=== PATIENT | female | born 2000 | race Caucasian/White ===

== ENCOUNTER 2018-02-21 20:32 | Inpatient (IN) | payer OTHER ==
[2018-02-21] MEDS ORDERED: OXYTOCIN 30 UNITS IN 0.9% NaCl 500ML IV BAG (J2590) As Ordered (20:40)
[2018-02-21] MEDS: LR 1,000 ML IV ×2 (21:08)
[2018-02-21] MEDS ORDERED: DIBUCAINE 1% OINTMENT 30GM TOP ×2 (21:15)
[2018-02-21] MEDS ORDERED: PROMETHAZINE 25 MG TAB PO ×2 (21:15)
[2018-02-21] MEDS ORDERED: ONDANSETRON 4MG/2ML VIAL (J2405) IV ×2 (21:15)
[2018-02-21 22:28] LABS: HEMATOCRIT 33.9 % (36.0-47.0); HEMOGLOBIN 11.2 g/dl (12.0-15.5); MEAN CORPUSCULAR HEMOGLOBIN 27.9 pg (27.0-33.0); MEAN CORPUSCULAR VOLUME 84.5 fl (80.0-96.0); PLATELET COUNT, AUTOMATED 195 10^3/uL (150-450); RED BLOOD COUNT 4.01 10^6/uL (4.00-5.40); WHITE BLOOD COUNT 10.6 10^3/uL (4.0-10.0)
[2018-02-21 23:41] LABS: HBSAG L&D NEGATIVE (NEGATIVE)
[2018-02-22] MEDS: LR 1,000 ML IV ×2 (05:22)
[2018-02-22] MEDS: PRENATAL VITAMINS CHEWABLE TABLET PO ×2 (08:45)
[2018-02-22] MEDS: DOCUSATE SODIUM 100 MG CAP PO ×4 (08:45→20:14)
[2018-02-23] MEDS: ACETAMINOPHEN 500 MG TAB PO ×4 (00:14→08:09)
[2018-02-23] MEDS: DOCUSATE SODIUM 100 MG CAP PO ×2 (08:09)
[2018-02-23] MEDS: PRENATAL VITAMINS CHEWABLE TABLET PO ×2 (08:09)
== END 2018-02-23 11:10 | disposition home or self-care (01) | DRG 560 ==
LOC: M LDO 20:32 → M LDI 20:38 → M OBS 23:10
PROVIDERS: Obstetrics & Gynecology
PROC: 10E0XZZ Delivery of Products of Conception, External Approach (ICD-10-PCS; principal; 2018-02-21)
DX: O80 Encounter for full-term uncomplicated delivery (principal); Z88.6 Allergy status to analgesic agent; Z37.0 Single live birth; Z3A.39 39 weeks gestation of pregnancy

== ENCOUNTER 2020-06-13 23:34 | Inpatient (IN) | payer OTHER ==
[~2020-06-13] VITALS: Ht 162.6 cm; Wt 147.0 kg
[~2020-06-13 23:34] MED LIST: DIBU1OIN TOP; MAPA500T2 PO; PRENTAB9 PO
[2020-06-13] MEDS ORDERED: OXYTOCIN 30 UNITS IN 0.9% NaCl 500ML IV BAG (J2590) As Ordered ONE (23:37)
[2020-06-13 23:53] VITALS: BP 130/64
[2020-06-14] VITALS (8 sets, daily range): BP systolic 118–151; BP diastolic 60–85
[2020-06-14 00:21] LABS: HEMATOCRIT 34.1 % (36.0-47.0); HEMOGLOBIN 10.9 g/dl (12.0-15.5); MEAN CORPUSCULAR HEMOGLOBIN 27.7 pg (27.0-33.0); MEAN CORPUSCULAR VOLUME 86.8 fl (80.0-96.0); PLATELET COUNT, AUTOMATED 256 10^3/uL (150-450); RED BLOOD COUNT 3.93 10^6/uL (4.00-5.40); WHITE BLOOD COUNT 10.7 10^3/uL (4.0-10.0)
--- NOTE | 2020-06-14 00:23 | HPEPDOC ---
Obstetrical History & Physical General Date of Admission Jun 13, 2020 at 23:47 History of Present Illness 20-year-old G3, P2002 at 39+ weeks gestation. EDC 06/18/2020 Presents with frequent, painful uterine contractions over the past several hours. Denies any loss of fluid or vaginal bleeding. Reports regular movement. ROS: no MCDOWELL, cp, sob, fever/chills/nausea/vomiting. course: Uncomplicated PMH: None SH:. None Meds: vitamin All: Ibuprofen CRAB FISHER: No STI or dysplasia OB:, Term 2 Sochx: No tobacco, alcohol or drug use FamHx:. None reported labs: Blood type O+, antibody screen negative, HepBsAg neg, HIV neg, rubella immune, Hep C antibody negative, RPR nonreactive, CT/GC neg, urine culture negative, GDM screening within normal limits imaging: no anomalies or placental abnormalities Past Medical History Allergies Coded Allergies: ibuprofen (Verified Allergy, Mild, RASH, 06/13/20) Medications Scheduled No.137/Iron/Folic Acd ( Vitamin Tablet) 1 Tab Tab, 1 TAB PO DAILY Scheduled PRN Acetaminophen (Mapap) 500 Mg Tab, 1,000 MG PO Q6HP PRN for MILD PAIN (PS 1-4) Dibucaine (Dibucaine) 1 % Oin, 0 TOP Q4HP PRN for PAIN Physical Examination Physical Examination GENERAL: Alert and oriented times three. BREAST: . ABDOMEN: Gravid and non-tender to touch. FETUS: Is vertex (VTX) by sterile vaginal examination (SVE), fetus is vertex (VTX) by Gary. HEART RATE: Regular rate and rhythm. LUNGS: Clear to auscultation (CTA). EXTREMITIES: No edema. No clonus.\ SVE: 10/100/0, AROM,clear EFM: Cat I [place]: ctxs every 2-3 min Laboratory Data 24H LABS Laboratory Tests 2 06/13/20 23:44: CBC/BMP Assessment/Plan Assessment 20-year old at 39+ weeks gestation. Dx: Active labor/arrived in the second stage. Reassuring maternal and status. Plan Admit and orient. Routine labs/orders UMER VENTURA DO Jun 14, 2020 00:23
[2020-06-14] MEDS ORDERED: OXYTOCIN DRIP 30 UNITS in IV 1 EA IV SCH (00:24)
[2020-06-14] MEDS ORDERED: ONDANSETRON 4MG/2ML VIAL IV PRN (00:30)
[2020-06-14] MEDS ORDERED: BENZOCAINE 20% HEMORRHOIDAL OINTMENT 28GM TUBE TOP PRN (00:30)
[2020-06-14] MEDS ORDERED: ACETAMINOPHEN 500 MG TAB PO PRN (00:30)
[2020-06-14] MEDS ORDERED: MEASLES,MUMPS,RUBELLA VACCINE INJ (MMR-II) (90707) SC SCH (00:30)
[2020-06-14] MEDS ORDERED: DOCUSATE SODIUM 100MG CAPSULE PO PRN (00:30)
[2020-06-14] MEDS ORDERED: RHOGAM 300 MCG (1500 IU) INJ (J2790) IM SCH (00:30)
--- NOTE | 2020-06-14 00:30 | DNPDOC ---
[facility] Delivery Note Delivery Note DATE OF DELIVERY: 06/13/2020 TIME OF DELIVERY: 2348 Spontaneous vaginal delivery. CORPORATE RECEPTIONIST: Dr. Armando So DO FACOG ANESTHESIA: None LACERATION: None ESTIMATED BLOOD LOSS: 200 mL. FINDINGS: 7 pound 7 ounce (3370g) female , Score, 7 and 8. Mother was GBS positive and was not treated in time. DELIVERY SUMMARY: The active phase and second stage of labor progressed in rapid/precipitous fashion. The head delivered in the MELINA position, and restituted LOT. No nuchal cord was noted. The anterior shoulder delivered with gentle downward guidance and the remainder of the body delivered with ease. The baby was placed on the patient's chest. Delayed cord clamping occurred for approximately 1 minute. The cord was then doubly clamped and cut. IV Pitocin was bolused to actively manage the third stage of labor. The placenta delivered intact without any difficulty within 10 minutes of delivery. The uterine fundus was noted to be firm and 2 cm below the umbilicus. The cervix, vagina, vulva and perineum were inspected. No lacerations/hematoma. Excellent hemostasis was noted. Sponge, needle and instrument counts were correct per protocol. DO MALVIN Ceja JONATHAN R. DO Jun 14, 2020 00:30
--- NOTE | 2020-06-14 07:14 | IPNPDOC ---
Progress Note Date of Service: Jun 14, 2020 Day#: 1 Progress Note SUBJECT: Status post . She has been ambulating, voiding spontaneously without issue and tolerating regular diet. Lochia decreasing/minimal. Patient is ambulating well. OBJECTIVE: VITAL SIGNS: Within normal limits, afebrile. Alert and oriented times three. Abdomen: Fundus firm at U-2. Soft, NTTP. ASSESSMENT: Status post uncomplicated spontaneous vaginal delivery. Vitals within normal limits, afebrile, hemodynamically stable with no evidence of infection. PLAN: Discharge to home tomorrow Tylenol and Motrin for pain. Routine instructions/precautions reviewed. Routine PP visit in 6 weeks in clinic. VS, I&O, 24H, Fishbone Vital Signs/I&O Vital Signs Date Time Temp Pulse Resp B/P (MAP) Pulse Ox O2 Delivery O2 Flow Rate FiO2 06/14/20 06:01 98.7 60 18 136/85 (102) 98 06/14/20 02:21 Room Air I&O- Last 24 Hours up to 6 AM 06/14/20 06:00 Output Total 200 ml Balance -200 ml Laboratory Data 24H LABS Laboratory Tests 2 06/13/20 23:44: Nucleated Red Blood Cells % (auto) 0.0, Syphilis Serology NONREACTIVE, Hepatitis B Surface Antigen NEGATIVEL 06/14/20 04:40: Serology Scanned Report Hepatitis B Testing CBC/BMP Laboratory Tests 06/13/20 23:44 UMER VENTURA DO Jun 14, 2020 07:14
[2020-06-14] MEDS ORDERED: LIDOCAINE 1% MDV 20ML VIAL As Ordered ONE (07:35)
[2020-06-14] MEDS: PRENATAL VITAMINS CHEWABLE TABLET PO SCH (07:56)
[2020-06-14] MEDS: ACETAMINOPHEN TAB 650MG DOSE (2X325MG) PO PRN (16:30)
[2020-06-15] MEDS: ACETAMINOPHEN TAB 650MG DOSE (2X325MG) PO PRN (00:59)
[2020-06-15 06:00] VITALS: BP 137/62
[2020-06-15] MEDS: PRENATAL VITAMINS CHEWABLE TABLET PO SCH (08:51)
== END 2020-06-15 14:10 | disposition home or self-care (01) | DRG 560 ==
LOC: M LDO 23:34 → EEVIPCON 23:47 → M LDI 23:47 → M OBS 06-14 02:03
PROVIDERS: ADMIT Obstetrics & Gynecology; ATTEND Obstetrics & Gynecology
PROC: 10E0XZZ Delivery of Products of Conception, External Approach (ICD-10-PCS; principal; 2020-06-13)
PROC: 10907ZC Drainage of Amniotic Fluid, Therapeutic from Products of Conception, Via Natural or Artificial Opening (ICD-10-PCS; 2020-06-13)
DX: O62.3 Precipitate labor (principal); O99.824 Streptococcus B carrier state complicating childbirth; Z3A.39 39 weeks gestation of pregnancy; Z37.0 Single live birth